=== PATIENT | male | born 2000 | race Caucasian/White ===

== ENCOUNTER 2020-11-26 18:43 | Emergency (ER) | payer OTHER ==
[2020-11-26] MEDS ORDERED: CIPRODEX OTIC7.5 ML AU (19:39)
[2020-11-26] MEDS ORDERED: AMOXICILLIN875 MG PO (19:39)
[2020-11-27] MEDS ORDERED: CIPRODEX OTIC7.5 ML AU (16:24)
== END 2020-11-26 20:00 | disposition home or self-care (01) ==
LOC: FER 18:43
DX: H66.93 Otitis media, unspecified, bilateral (principal)
CPT/HCPCS: 99282

== ENCOUNTER 2021-03-03 13:55 | Emergency (ER) | payer OTHER ==
[~2021-03-03 13:55] MED LIST: AMOXICILLIN875 MG PO; CIPRODEX OTIC7.5 ML AU
[2021-03-03 16:09] LABS: INFLUENZA A NAA NEGATIVE (NEGATIVE)
[2021-03-03 16:14] LABS: CORONAVIRUS 2019 SARS-COV-2 POSITIVE (NEGATIVE)
[2021-03-03 20:54] LABS: HCT 45.9 % (42.0-52.0); HGB 15.7 g/dl (13.2-18.0); MCH 30.4 pg (25.0-31.0); MCHC 34.2 g/dL (32.0-36.0); MCV 88.8 fL (78.0-100.0); MPV 9.7 fL (6.0-9.5); RBC 5.17 M/uL (4.70-6.00); RDW 12.6 % (11.5-14.0); WBC 8.5 K/uL (4.0-10.5)
[2021-03-03 21:14] LABS: ALBUMIN 4.3 g/dL (3.4-5.0); BILIRUBIN - TOTAL 0.2 mg/dL (0.2-1.0); BUN/CREAT RATIO (CALC) 22.1 RATIO; CREATININE 0.86 mg/dL (0.67-1.17); GLOBULIN (CALCULATION) 3.4 g/dL; POTASSIUM 3.8 mmol/L (3.5-5.1); TOTAL PROTEIN 7.7 g/dL (6.4-8.2)
[2021-03-03] MEDS ORDERED: VENTOLIN HFA18 GM INH (22:20)
[2021-03-03] MEDS ORDERED: ZOFRAN4 M1 PO (22:20)
[2021-03-03] MEDS ORDERED: MEDROL 4MG DOSEP4 MG PO (22:20)
== END 2021-03-03 22:35 | disposition home or self-care (01) ==
LOC: FER 13:55
PROVIDERS: Emergency Medicine; Physician Assistant
DX: U07.1 COVID-19 (principal)
CPT/HCPCS: 36415; 71045; 80053; 84484; 85379; 87880; 93005; J7512; U0002